=== PATIENT | male | born 2000 | race Caucasian/White ===

== ENCOUNTER 2024-06-21 12:15 | Outpatient (REF) | payer BC, SELFPAY ==
--- NOTE | ~2024-06-21 | US_ITS ---
EXAMINATION: US ABDOMEN LIMITED CLINICAL INFORMATION: RLQ TENDERNESS: R/O APPENDICITIS. COMPARISON: None. TECHNIQUE: Imaging of the abdomen was performed with a high-frequency linear transducer using graded compression. FINDINGS: The appendix is not visualized related to overlying gas, stool and moderate peristalsis. No inflammatory changes are identified in the right lower quadrant. No enlarged mesenteric lymph nodes. There is no free fluid. US/US appendix IMPRESSION: The appendix is not visualized. No inflammatory changes are identified in the right lower quadrant. Electronically signed by: Yeni Wren DO 06/21/2024 05:25 PM [facility] [place]
== END 2024-06-21 12:16 | disposition home or self-care (01) ==
LOC: HO.UMASIMG 12:15
PROVIDERS: Visit Provider Student in an Organized Health Care Education/Training Program
DX: R10.813 Right lower quadrant abdominal tenderness (principal)
CPT/HCPCS: 76705